=== PATIENT | male | born 1950 | race Caucasian/White ===

== ENCOUNTER 2018-08-27 08:29 | Day surgery (SDC) ==
[~2018-08-27 08:29] MED LIST: BRIMONIDINE TARTRATE 0.2% OPTH SOL OP PRN; LIDOCAINE 1% 20 ML MDV ID STA; ZOFRAN 4 MG/2 ML IVP ONE
[2018-08-27] MEDS: CYCLOGYL 2% OPTH OP PRN ×3 (08:40→08:50)
[2018-08-27] MEDS: TETRACAINE 0.5% UNIT-DOSE OP PRN ×2 (08:40→09:28)
[2018-08-27] MEDS: BETADINE OPTH PREP OP PRN ×2 (08:40→09:28)
[2018-08-27] MEDS ORDERED: SUBLIMAZE ONE (09:30)
[2018-08-27] MEDS ORDERED: VERSED ONE (09:30)
[2018-08-27] MEDS: LIDOCAINE 1%/PHENYLEPHRINE 1.5% BSS (SURGERY) INTRAOCULA ONE ×2 (09:31→09:38)
[2018-08-27] MEDS: BSS WITH EPINEPHRINE OP ONE ×2 (09:31→09:38)
[2018-08-27] MEDS: DEX-MOXI-KETOR OPTH INJ 1/0.5/0.4 MG/ML IO ONE ×2 (09:31→09:38)
[2018-08-27 15:13] VITALS: TEMP 97.2
[2018-08-28 17:04] VITALS: BP 134/66
== END 2018-08-27 10:30 | disposition home or self-care (01) ==
LOC: SURG 08:29
PROVIDERS: ATTEND Ophthalmology
DX: H25.812 Combined forms of age-related cataract, left eye (principal)